=== PATIENT | male | born 1995 | race Caucasian/White ===

== ENCOUNTER 2017-08-07 15:44 | Emergency (ER) | payer MEDICAID ==
[2017-08-07 15:49] VITALS: BP 111/74; RESP 16; TEMP 97.5
[2017-08-07] MEDS ORDERED: ALBUTEROL 3 ML DEYVIAL IH ONE (16:18)
--- NOTE | 2017-08-07 16:20 | EDPHY ---
H & P Smoking Status: Current some day smoker Time Seen by Provider: 08/07/17 16:05 HPI/ROS: CHIEF COMPLAINT: Cough HISTORY OF PRESENT ILLNESS: 22-year-old male presents to the emergency department with ongoing cough. Patient states that he was sick with cold symptoms in May and improved some but not completely. He states over last 1 month at least he has had a mostly dry cough. He states over last week his cough has been keeping him up at night. No known fevers or chills. Denies myalgias. He denies night sweats. Denies chest pain or difficulty breathing. No history of pneumonia. He has never had bronchitis in the past. He did not receive a flu shot. His mother apparently was diagnosed with the flu a few months ago. No vomiting or diarrhea. Specifically no post tussive vomiting. REVIEW OF SYSTEMS: Constitutional: No fever, no chills. Eyes: No double or blurry vision. ENT: No sore throat. Respiratory: Cough. no shortness of breath. Cardiac: No chest pain. Gastrointestinal: No abdominal pain, vomiting or diarrhea. Genitourinary: No dysuria. Musculoskeletal: No neck or back pain. Skin: No rashes. Neurological: No headache. (Santa Szymanski) Past Medical/Surgical History: Negative (Santa Szymanski) Social History: [employer] student (Santa Szymanski) Physical Exam: General Appearance: Alert, no distress. 98% on room air. Afebrile. Nontoxic appearing. Actively coughing. Eyes: Pupils equal and round. Extraocular motions are all intact. ENT: Mouth: Mucous membranes moist. Respiratory: No wheezing, rhonchi, or rales, lungs are clear to auscultation. Cardiovascular: Regular rate and rhythm. Gastrointestinal: Abdomen is soft and nontender, no masses, no rebound or guarding, bowel sounds normal. Neurological: Alert and oriented x 3, cranial nerves II through XII grossly intact Skin: Warm and dry, no rashes. Musculoskeletal: Nontender to palpate along the cervical, thoracic or lumbar spine. Neck is supple. Extremities: Full range of motion and no peripheral edema. Psychiatric: Patient is oriented X 3, there is no agitation. (Santa Szymanski) Constitutional: Initial Vital Signs Temperature (C) 36.4 C 08/07/17 15:47 Heart Rate 81 08/07/17 15:47 Respiratory Rate 16 08/07/17 15:47 Blood Pressure 111/74 08/07/17 15:47 O2 Sat (%) 98 08/07/17 15:47 O2 Delivery Mode Room Air Allergies/Adverse Reactions: Sulfa (Sulfonamide Antibiotics) Allergy (Mild, Verified 08/07/17 15:46) nausea Home Medications: Medication Instructions Recorded NK [No Known Home Meds] 08/07/17 Medical Decision Making ED Course/Re-evaluation: I do not think chest x-rays indicated. Clinically I think this patient likely has viral upper respiratory infection. He likely had influenza although I do not think treatment is indicated now. Patient was given albuterol nebulizer with the some relief. He the patient declined albuterol MDI. Patient was instructed to return if he had any change in symptoms or felt worse. (Santa Szymanski) Differential Diagnosis: Including but not limited to bronchitis, pneumonia, viral upper respiratory infection, influenza (Santa Szymanski) - Data Points Medications Given: Discontinued Medications Albuterol (Proventil Neb) 3 ml IH EDNOW ONE Stop: 08/07/17 16:19 Last Admin: 08/07/17 16:21 Dose: 3 ml Departure - Departure Disposition: Home, Routine, Self-Care Clinical Impression: Viral upper respiratory infection Condition: Good Instructions: Upper Respiratory Infection (ED) Additional Instructions: Add humidifier as discussed. Drink plenty of fluids. Liquid NyQuil or Delsym, dextromethorphan, [id number], to help suppress her cough to help you sleep at night. Return to the emergency department if you develop shortness of breath, fever, pain in her chest, or if you feel worse in any way. Keep scheduled appointment with primary care provider on Saturday to recheck. Referrals: Eduard Naik DO [Medical Doctor] - 2-3 days, if not improved (Primary care provider operations analyst)
[2017-08-07 17:06] VITALS: PULSE 82; O2SAT 94
== END 2017-08-07 17:06 | disposition home or self-care (01) ==
DX: J06.9 Acute upper respiratory infection, unspecified (principal); F17.200 Nicotine dependence, unspecified, uncomplicated
CPT/HCPCS: J7613

== ENCOUNTER → 2018-07-19 | Outpatient (CLI) | payer MEDICAID | LOC: BMCIMAGING 17:23 ==